=== PATIENT | male | born 1965 | race Caucasian/White ===

== ENCOUNTER 2018-09-17 08:59 | Inpatient (IN) | payer BC, SELFPAY ==
--- NOTE | 2018-09-17 09:28 | RAD ---
PORTABLE CHEST: Date: 09/17/18 HISTORY: Chest pain. FINDINGS: Heart size appears borderline for apical lordotic technique. Mediastinal structures are unremarkable. Lungs are clear of infiltrates. No signs of failure. IMPRESSION: No active intrathoracic disease. POS: [facility]
[2018-09-17] MEDS ORDERED: Clopidogrel Bisulfate 300 MG TAB ONE (09:35)
[2018-09-17] MEDS ORDERED: Atropine Sulfate 1 mg/10 ml Syringe ONE (09:35)
[2018-09-17] MEDS ORDERED: Fentanyl 100 MCG/2 ML VIAL ONE (09:38)
[2018-09-17] MEDS ORDERED: Midazolam HCl 2 mg/2 ml Vial ONE (09:38)
[2018-09-17] MEDS ORDERED: Nitroglycerin 0.4 MG TAB (25 Tab Bottle) SL PRN (10:21)
[2018-09-17] MEDS ORDERED: Mag-Al 1200 mg/1200 mg/30 ML UDCUP PO PRN (10:21)
[2018-09-17] MEDS ORDERED: Morphine 2 MG/ML SYRINGE SLOW IVP PRN (10:21)
[2018-09-17] MEDS ORDERED: traMADol HCl 50 MG TAB PO PRN (10:21)
[2018-09-17] MEDS ORDERED: Milk Of Magnesia 30 ML UDCUP PO PRN (10:21)
[2018-09-17] MEDS ORDERED: Zolpidem Tartrate 5 MG TAB PO PRN (10:21)
[2018-09-17] MEDS ORDERED: Acetaminophen/Codeine 30-300mg Tablet PO PRN (10:21)
[2018-09-17] MEDS ORDERED: Sodium Chloride 0.9% 1,000 ML IV SCH (10:30)
--- NOTE | 2018-09-17 10:49 | CON ---
DATE OF CONSULTATION: 09/17/2018 REASON FOR ADMISSION: Inferior ST-elevation TX. HISTORY OF PRESENT ILLNESS: Mr. Alvarado is a very pleasant 53-year-old white gentleman, who comes to the hospital for chest pain. He started having pain at 6:00 a.m. today. He went to the [facility] ER here in [place] and was found to have an inferior ST-elevation TX, so he was transferred over emergently for STEMI activation. He was taken emergently to the catheterization lab, where he was found to have a subtotaled large RPL branch. This was successfully wired and stented with a drug-eluting stent. The procedure went very well and his pain improved significantly after the artery was open. He otherwise has no other issues at that time. PAST MEDICAL HISTORY: Hypertension. PAST SURGICAL HISTORY: Back surgery twice. OUTPATIENT MEDICATIONS: Losartan 25 mg daily. ALLERGIES: NO KNOWN DRUG ALLERGIES. SOCIAL HISTORY: Drinks one mixed drink daily, but no more than that. Denies tobacco or drugs. FAMILY HISTORY: Noncontributory. REVIEW OF SYSTEMS: A 12-point review of systems was done and was all negative unless stated in the history of present illness. PHYSICAL EXAMINATION: VITAL SIGNS: Blood pressure on arrival was 188/116, currently at 148/62, pulse of 80, respiratory rate 16, and sat 95% on room. GENERAL: Awake, alert, and oriented x3, in no distress. HEENT: Normocephalic and atraumatic. NECK: Supple. LUNGS: Clear. CARDIOVASCULAR: S1 and S2. No S3 or S4. No murmurs. ABDOMEN: Soft. Positive bowel sounds. EXTREMITIES: No edema. SKIN: Warm and dry. LABORATORY WORK: Reviewed. EKGs were reviewed. ASSESSMENT: 1. Inferior ST-elevation myocardial infarction. 2. Status post drug-eluting stent to RPL larger branch. 3. Hypertension. PLAN: 1. Continue dual antiplatelet therapy with Brilinta and aspirin for now. 2. Bedrest and ambulation. 3. Pull the sheath once ACT under 170 and then bedrest for 4 hours, but just lay flat for 2 hours. 4. Full code. 5. For GI prophylaxis, we will add a proton pump inhibitor. 6. For stress ulcer prophylaxis, we will start Lovenox tomorrow. 7. Disposition, pending clinical evolution. Job ID: [id number]
[2018-09-17 10:51] LABS: Troponin I 0.088 ng/mL (< 0.028)
[2018-09-17 10:53] LABS: CKMB 2.9 ng/mL (0-6.6)
[2018-09-17] MEDS ORDERED: Iopamidol 370 76% 50 ML VIAL FS ONE (11:24)
[2018-09-17] MEDS ORDERED: Iopamidol 370 76% 100 ML VIAL ONE (11:24)
[2018-09-17 12:34] VITALS: BMI 33.0
[2018-09-17 17:08] LABS: CKMB 65.3 ng/mL (0-6.6); Troponin I 35.848 ng/mL (< 0.028)
[2018-09-17] MEDS: Carvedilol 3.125 MG TAB PO SCH (17:30)
[2018-09-17] MEDS: Atorvastatin Calcium 40 MG TAB PO SCH (20:52)
[2018-09-17] MEDS: Enoxaparin Sodium 30 MG/0.3 ML SYRINGE SC SCH (20:52)
[2018-09-17] MEDS: TICAGRELOR 90 MG TABLET PO SCH (21:07)
[2018-09-18 04:46] LABS: #Eosinphils 0.1 thou/uL (0.0-0.7); #Lymphocytes 1.7 thou/uL (1.20-3.40); #Monocytes 0.8 thou/uL (0.11-0.59); #Neutrophils 7.7 thou/uL (1.40-6.50); %Basophils 0.3 % (0.0-1.0); %Eosinophils 0.9 % (0.0-10.0); %Lymphocytes 16.6 % (21.0-51.0); %Monocytes 8.1 % (0.0-10.0); %Neutrophils 74.1 % (42.0-75.0); Hemoglobin 14.4 g/dL (14.0-18.0); Mean Corpuscular HGB CONC 32.8 g/dL (32.0-36.0); Mean Corpuscular Hemoglobin 27.6 pg (27.0-31.0); Mean Corpuscular Volume 84.3 fL (78.0-98.0); Mean Platelet Volume 8.4 fL (7.4-10.4); Platelet Count 205 thou/uL (130-400); RBC Distribution Width 12.7 % (11.5-14.5); White Blood Cell (WBC) Count 10.3 thou/uL (4.8-10.8)
[2018-09-18 05:10] LABS: ALT (SGPT) 23 U/L (8-55); AST (SGOT) 52 U/L (5-34); Albumin 3.7 g/dL (3.5-5.0); Alkaline Phosphatase 66 U/L (40-150); Anion Gap 13 mmol/L (10-20); BUN (Urea Nitrogen) 11 mg/dL (8.4-25.7); Bilirubin, Total 0.6 mg/dL (0.2-1.2); Calc. Creatinine Clearance 116 mL/min (70-130); Calcium 8.6 mg/dL (7.8-10.44); Carbon Dioxide 22 mmol/L (22-29); Cardiac Risk 4.1 (Less than 4.5); Chloride 106 mmol/L (98-107); Cholesterol 162 mg/dl (< 200 Desired); Estimated GFR-MDRD 80; Globulin 2.6 g/dL (2.4-3.5); Glucose 141 mg/dL (70-105); HDL Cholesterol 40 mg/dL (>60 Neg Risk); LDL Cholesterol, Calculated 95 mg/dL; Potassium 3.8 mmol/L (3.5-5.1); Protein, Total 6.3 g/dL (6.0-8.3); Sodium 137 mmol/L (136-145); Triglycerides 137 mg/dL (Less than 150)
[2018-09-18 05:28] LABS: Free T4 (Free Thyroxine) 0.88 ng/dL (0.70-1.48); Thyroid Stimulating Hormone 0.3298 uIU/mL (0.35-4.94)
[2018-09-18 05:39] LABS: CKMB 24.4 ng/mL (0-6.6)
[2018-09-18] MEDS: Losartan 25 MG TAB PO SCH (09:51)
[2018-09-18] MEDS: Aspirin Chewable 81 MG TAB PO SCH (09:52)
[2018-09-18] MEDS: Carvedilol 3.125 MG TAB PO SCH (09:52)
[2018-09-18] MEDS: TICAGRELOR 90 MG TABLET PO SCH ×2 (09:53→21:11)
--- NOTE | 2018-09-18 13:47 | PDOC.CTH ---
Cardiology Progress Note - Subjective He is doing well. No chest pain. He had one small run of non sustained VT overnight only 7 beast worth. - Objective Vital Signs Temp Pulse Ox 09/18/18 12:00 98.2 F 09/18/18 08:00 99.1 F 09/18/18 07:47 97 09/18/18 03:00 98.2 F Weight 205 lb 0.478 oz 09/17/18 09/18/18 09/19/18 06:59 06:59 06:59 Intake Total 2260 630 Output Total 2640 590 Balance -380 40 - Physical Examination General/Neuro: alert & oriented x3, NAD Neck: no JVD present Lungs: unlabored respirations Heart: RRR Abdomen: NT/ND Extremities: other: (no edema) - Telemetry Telemetry Rhythm: NS VT, 7 beats - Labs Result Diagrams: 09/18/18 04:36 09/18/18 04:36 Troponin/CKMB CK-MB (CK-2) 24.4 ng/mL (0-6.6) H* 09/18/18 04:36 Troponin I 16.920 ng/mL (< 0.028) H* 09/18/18 04:36 - Assessment/Plan 1. Acute inferior STEMI 2. S/P AC to RPL. 3. HTN PLAN - Will increase Coreg for both NS VT and BP. - Continue other meds. - Will switch to Plavix.
[2018-09-18] MEDS: Carvedilol 6.25 MG TAB PO SCH (16:35)
--- NOTE | 2018-09-18 18:01 | EKG ---
Test Reason : Blood Pressure : / mmHG Vent. Rate : 068 BPM Atrial Rate : 068 BPM P-R Int : 164 ms QRS Dur : 088 ms QT Int : 392 ms P-R-T Axes : 028 -15 038 degrees QTc Int : 416 ms Normal sinus rhythm Normal ECG When compared with ECG of 27-OCT-2010 16:00, Incomplete right bundle branch block is no longer Present Borderline criteria for Anterior infarct are no longer Present Confirmed by KENROY CONKLIN (2) on 09/18/2018 6:01:12 PM Referred By: BE Confirmed By:KENROY CONKLIN
[2018-09-18] MEDS: Enoxaparin Sodium 30 MG/0.3 ML SYRINGE SC SCH (21:11)
[2018-09-18] MEDS: Atorvastatin Calcium 40 MG TAB PO SCH (21:11)
[2018-09-19] MEDS: Losartan 25 MG TAB PO SCH (08:46)
[2018-09-19] MEDS: Aspirin Chewable 81 MG TAB PO SCH (08:46)
[2018-09-19] MEDS: Carvedilol 6.25 MG TAB PO SCH ×2 (08:46→17:06)
[2018-09-19 08:59] LABS: #Eosinphils 0.1 thou/uL (0.0-0.7); #Lymphocytes 1.3 thou/uL (1.20-3.40); #Monocytes 0.9 thou/uL (0.11-0.59); #Neutrophils 7.1 thou/uL (1.40-6.50); %Basophils 0.4 % (0.0-1.0); %Eosinophils 1.4 % (0.0-10.0); %Lymphocytes 14.2 % (21.0-51.0); %Monocytes 9.3 % (0.0-10.0); %Neutrophils 74.8 % (42.0-75.0); Hemoglobin 14.9 g/dL (14.0-18.0); Mean Corpuscular HGB CONC 33.1 g/dL (32.0-36.0); Mean Corpuscular Volume 84.6 fL (78.0-98.0); Mean Platelet Volume 8.8 fL (7.4-10.4); Platelet Count 216 thou/uL (130-400); RBC Distribution Width 12.5 % (11.5-14.5); Red Blood Cell (RBC) Count 5.33 mill/uL (4.70-6.10); White Blood Cell (WBC) Count 9.5 thou/uL (4.8-10.8)
[2018-09-19] MEDS ORDERED: Clopidogrel Bisulfate 75 MG TAB PO SCH (09:00)
[2018-09-19 09:17] LABS: Anion Gap 13 mmol/L (10-20); BUN (Urea Nitrogen) 10 mg/dL (8.4-25.7); Calc. Creatinine Clearance 139 mL/min (70-130); Calcium 9.3 mg/dL (7.8-10.44); Carbon Dioxide 21 mmol/L (22-29); Chloride 106 mmol/L (98-107); Estimated GFR-MDRD Greater than 90; Glucose 117 mg/dL (70-105); Sodium 136 mmol/L (136-145)
[2018-09-19 15:56] VITALS: TEMP 97.1
[2018-09-19 17:08] VITALS: BP 133/86
--- NOTE | 2018-09-19 18:10 | DIS ---
DATE OF ADMISSION: 09/17/2018 DATE OF DISCHARGE: 09/19/2018 DISCHARGING PHYSICIAN: Juan Echols MD. PRIMARY DIAGNOSES: 1. Inferior ST-elevation myocardial infarction. 2. Hypertension. PROCEDURES PERFORMED: 1. Echocardiogram. 2. Heart catheterization with drug-eluting stent to the RPL branch. SUMMARY: Mr. Alvarado is a pleasant 53-year-old white gentleman, who comes to the hospital for chest pain. He was found to have an inferior ST-elevation ID and was taken emergently to the catheterization lab, where he was found to have a subtotal RPL. This was wired and stented successfully with 2.5 stent. He did very well afterwards. His pain got better immediately. He did have two small runs of nonsustained VT at about 7 beats each, nothing sustained completely asymptomatic. He had a few PVCs afterwards actually got better after up-titration of his beta alma. He did well. Echocardiogram showed normal LV function. Discharged home today in a stable condition, doing well, walking around the halls without any symptoms. DISCHARGE MEDICATIONS: 1. Aspirin 81 mg a day. 2. Plavix 75 mg a day. 3. Coreg 6.25 b.i.d. 4. Losartan 25 mg a day. 5. Atorvastatin 80 mg at bedtime. 6. Sublingual nitroglycerin p.r.n. chest pain. FOLLOWUP APPOINTMENTS: 1. With myself in 1 month. 2. With PCP in 1 week. Over 30 minutes were spent at bedside counseling for discharge instructions. Job ID: [id number]
--- NOTE | 2018-09-19 21:02 | EKG ---
Test Reason : Blood Pressure : / mmHG Vent. Rate : 070 BPM Atrial Rate : 070 BPM P-R Int : 160 ms QRS Dur : 090 ms QT Int : 390 ms P-R-T Axes : 014 -26 037 degrees QTc Int : 421 ms Normal sinus rhythm Inferior infarct , age undetermined Abnormal ECG When compared with ECG of 17-SEP-2018 11:56, (Unconfirmed) Inferior infarct is now Present Confirmed by OSCAR NAYAK, SBailee ([id number]) on 09/19/2018 9:01:46 PM Referred By: BE Confirmed By:DR. Sincere MOORE MD
== END 2018-09-19 18:32 | disposition home or self-care (01) | DRG 247 ==
LOC: ERS 08:59 → SDC 09:14 → CCU 09:25 → 2NO 09-18 14:15
PROVIDERS: ADMIT Internal Medicine Cardiovascular Disease; ATTEND Internal Medicine Cardiovascular Disease
PROC: 4A023N7 Measurement of Cardiac Sampling and Pressure, Left Heart, Percutaneous Approach (ICD-10-PCS; principal; 2018-09-17)
PROC: 027034Z Dilation of Coronary Artery, One Artery with Drug-eluting Intraluminal Device, Percutaneous Approach (ICD-10-PCS; 2018-09-17)
PROC: B2151ZZ Fluoroscopy of Left Heart using Low Osmolar Contrast (ICD-10-PCS; 2018-09-17)
PROC: B2111ZZ Fluoroscopy of Multiple Coronary Arteries using Low Osmolar Contrast (ICD-10-PCS; 2018-09-17)
DX: I21.19 ST elevation (STEMI) myocardial infarction involving other coronary artery of inferior wall (principal); I10 Essential (primary) hypertension; Z79.899 Other long term (current) drug therapy
CPT/HCPCS: 36415; 36416; 71045; 80048; 80053; 80061; 82553; 83880; 84439; 84443; 84484; 85025; 85347; 92928; 93005; 93010; 93306; 93458; 93798; 96374; 99152; C1769; C1874; C1887; C9600; J0461; J1644; J1650; J2250; J3010; Q9967

== ENCOUNTER 2021-01-16 10:27 | Emergency (ER) | payer BC ==
[2021-01-16 11:06] LABS: #Lymphocytes 0.7 thou/uL (1.20-3.40); #Monocytes 0.2 thou/uL (0.11-0.59); #Neutrophils 3.8 thou/uL (1.40-6.50); %Eosinophils 0.2 % (0.0-10.0); %Monocytes 4.5 % (0.0-10.0); %Neutrophils 81.3 % (42.0-75.0); Hemoglobin 14.1 g/dL (14.0-18.0); Mean Corpuscular HGB CONC 32.2 g/dL (32.0-36.0); Mean Corpuscular Hemoglobin 27.4 pg (27.0-31.0); Mean Corpuscular Volume 85.3 fL (78.0-98.0); Mean Platelet Volume 8.5 fL (7.4-10.4); Platelet Count 134 thou/uL (130-400); RBC Distribution Width 12.7 % (11.5-14.5); Red Blood Cell (RBC) Count 5.15 mill/uL (4.70-6.10); White Blood Cell (WBC) Count 4.6 thou/uL (4.8-10.8)
[2021-01-16 11:24] LABS: ALT (SGPT) 38 U/L (8-55); AST (SGOT) 47 U/L (5-34); Albumin 3.8 g/dL (3.5-5.0); Alkaline Phosphatase 73 U/L (40-110); Anion Gap 14 mmol/L (10-20); BUN (Urea Nitrogen) 16 mg/dL (8.4-25.7); Bilirubin, Total 0.6 mg/dL (0.2-1.2); Calc. Creatinine Clearance 0 mL/min (70-130); Calcium 8.1 mg/dL (7.8-10.44); Carbon Dioxide 29 mmol/L (22-29); Chloride 96 mmol/L (98-107); Globulin 3.3 g/dL (2.4-3.5); Glucose 127 mg/dL (70-105); Potassium 3.4 mmol/L (3.5-5.1); Protein, Total 7.1 g/dL (6.0-8.3); Sodium 136 mmol/L (136-145)
== END 2021-01-16 13:04 | disposition home or self-care (01) ==
LOC: ERS 10:27
DX: B34.9 Viral infection, unspecified (principal); R55 Syncope and collapse; I10 Essential (primary) hypertension; I25.10 Atherosclerotic heart disease of native coronary artery without angina pectoris
CPT/HCPCS: 36415; 70450; 71045; 80053; 84484; 85025; 93005

== ENCOUNTER 2023-08-03 08:41 | Outpatient (CLI) | payer BC, OTHER | END 2023-08-03 08:42 | disposition home or self-care (01) | LOC: RAD 08:41 | PROVIDERS: ATTEND Internal Medicine Critical Care Medicine | DX: R06.00 Dyspnea, unspecified (principal) | CPT/HCPCS: 71046 ==

== ENCOUNTER 2024-07-27 12:06 | Observation (INO) | payer OTHER ==
[2024-07-27 14:41] LABS: #Basophils 0.04 10x3/uL (0.0-0.2); %Basophils 0.5 % (0.0-1.0); %Eosinophils 1.8 % (0.0-10.0); %Lymphocytes 22.2 % (21.0-51.0); %Monocytes 6.7 % (0.0-10.0); %Neutrophils 68.4 % (42.0-75.0); Hematocrit 47.5 % (42.0-52.0); Hemoglobin 15.1 g/dL (14.0-18.0); Mean Corpuscular HGB CONC 31.8 g/dL (32.0-36.0); Mean Corpuscular Volume 84.8 fL (78.0-98.0); Platelet Count 258 10x3/uL (130-400); RBC Distribution Width 13.4 % (11.5-14.5)
[2024-07-27] MEDS ORDERED: Iopamidol-370 76% 500 ML MDV (1 ML CHARGE) ONE (14:56)
[2024-07-27 15:01] LABS: ALT (SGPT) 42 U/L (Less than 45); AST (SGOT) 34 U/L (11-34); Albumin 4.1 g/dL (3.1-4.5); Alkaline Phosphatase 86 U/L (40-110); Anion Gap 16 mmol/L (10-20); BUN (Urea Nitrogen) 10 mg/dL (8.4-25.7); Bilirubin, Total 0.4 mg/dL (0.3-1.2); Calc. Creatinine Clearance 0 mL/min (70-130); Calcium 9.7 mg/dL (7.8-10.44); Carbon Dioxide 23 mmol/L (22-29); Chloride 104 mmol/L (98-107); Estimated GFR 100; Globulin 3.6 g/dL (2.4-3.5); Glucose 119 mg/dL (70-105); Magnesium 2.2 mg/dL (1.6-2.6); Potassium 4.1 mmol/L (3.5-5.1); Protein, Total 7.7 g/dL (6.0-8.3); Sodium 139 mmol/L (136-145)
[2024-07-27 15:30] LABS: Troponin I Less than 0.010 ng/mL (< 0.028)
[2024-07-27] MEDS ORDERED: Aspirin Chewable 81 MG TAB ONE (19:03)
[2024-07-27] MEDS ORDERED: Nitroglycerin 0.4 MG TAB (25 Tab Bottle) SL PRN (19:13)
[2024-07-27] MEDS ORDERED: Acetaminophen 325 MG TAB PO PRN (19:13)
[2024-07-27] MEDS ORDERED: Ondansetron PF 4 MG/2 ML Vial IVP PRN (19:13)
[2024-07-27] MEDS ORDERED: hydrALAZINE 20 MG/ML VIAL SLOW IVP PRN (19:13)
[2024-07-27 22:12] VITALS: BMI 34.7
[2024-07-27] MEDS ORDERED: Heparin 5,000 UNITS/ML VIAL ONE (23:02)
[2024-07-27] MEDS: Heparin 5,000 UNITS/ML VIAL SC SCH (23:38)
[2024-07-27] MEDS: Atorvastatin Calcium 40 MG TAB PO SCH (23:39)
[2024-07-28 04:13] LABS: #Basophils 0.04 10x3/uL (0.0-0.2); %Basophils 0.4 % (0.0-1.0); %Eosinophils 2.8 % (0.0-10.0); %Monocytes 10.3 % (0.0-10.0); %Neutrophils 55.3 % (42.0-75.0); Hematocrit 46.8 % (42.0-52.0); Hemoglobin 15.1 g/dL (14.0-18.0); Mean Corpuscular HGB CONC 32.3 g/dL (32.0-36.0); Mean Corpuscular Hemoglobin 27.5 pg (27.0-31.0); Mean Corpuscular Volume 85.1 fL (78.0-98.0); Mean Platelet Volume 10.8 fL (7.4-10.4); Platelet Count 250 10x3/uL (130-400); RBC Distribution Width 13.5 % (11.5-14.5)
[2024-07-28 05:33] LABS: Anion Gap 19 mmol/L (10-20); BUN (Urea Nitrogen) 14 mg/dL (8.4-25.7); Calc. Creatinine Clearance 112 mL/min (70-130); Calcium 9.3 mg/dL (7.8-10.44); Carbon Dioxide 21 mmol/L (22-29); Cardiac Risk 3.8 (Less than 4.5); Chloride 105 mmol/L (98-107); Cholesterol 153 mg/dl (< 200 Desired); Estimated GFR 88; Glucose 115 mg/dL (70-105); HDL Cholesterol 40 mg/dL (>60 Neg Risk); Potassium 3.9 mmol/L (3.5-5.1); Sodium 141 mmol/L (136-145); Triglycerides 552 mg/dL (Less than 150)
[2024-07-28] MEDS ORDERED: Carvedilol 6.25 MG TAB ONE (08:10)
[2024-07-28] MEDS ORDERED: Clopidogrel Bisulfate 75 MG TAB ONE (08:10)
[2024-07-28] MEDS ORDERED: Heparin 5,000 UNITS/ML VIAL ONE (08:10)
[2024-07-28] MEDS ORDERED: Aspirin Chewable 81 MG TAB ONE (08:10)
[2024-07-28 08:57] VITALS: BP 161/102; TEMP 98.5
[2024-07-28] MEDS: Carvedilol 6.25 MG TAB PO SCH (09:01)
[2024-07-28] MEDS: Aspirin Chewable 81 MG TAB PO SCH (09:01)
[2024-07-28] MEDS: Clopidogrel Bisulfate 75 MG TAB PO SCH (09:01)
[2024-07-28] MEDS: Losartan 25 MG TAB PO SCH (10:22)
== END 2024-07-28 13:00 | disposition home or self-care (01) ==
LOC: ERS 12:06 → ERHOLD 19:40
PROVIDERS: ADMIT Student in an Organized Health Care Education/Training Program; ATTEND Student in an Organized Health Care Education/Training Program
DX: R29.818 Other symptoms and signs involving the nervous system (principal); I10 Essential (primary) hypertension; I25.10 Atherosclerotic heart disease of native coronary artery without angina pectoris; E04.9 Nontoxic goiter, unspecified; Z95.5 Presence of coronary angioplasty implant and graft; Z79.02 Long term (current) use of antithrombotics/antiplatelets; Z79.899 Other long term (current) drug therapy
CPT/HCPCS: 36415; 70496; 70498; 70551; 80048; 80053; 80061; 83735; 84484; 85025; 93005; 96372; G0378; J1644; Q9967